=== PATIENT | female | born 1955 | race Two or more races ===

== ENCOUNTER 2017-05-20 20:04 | Emergency (ER) | payer MEDICAID ==
[~2017-05-20] VITALS: Ht 149.9 cm; Wt 79.6 kg
[2017-05-20 20:29] VITALS: BP 154/65
[2017-05-20 21:21] LABS: Basophils # (auto) 0 uL; Basophils % (auto) 0.4 % (0.0-2.0); Eosinophils # (auto) 0.1 uL; Eosinophils % (auto) 0.9 % (0.0-7.0); Hematocrit 45.1 % (36.0-46.0); Hemoglobin 15.2 g/dL (12.2-16.2); Lymphocytes # (auto) 2.4 uL; Lymphocytes % (auto) 25.1 % (10.0-50.0); Mean Corpuscular Hgb Conc. 33.8 g/dL (32.0-36.0); Mean Corpuscular Volume 85.9 fL (80.0-100.0); Monocytes # (auto) 0.7 uL; Monocytes % (auto) 6.9 % (0.0-12.0); Neutrophils # (auto) 6.4 uL; Neutrophils % (auto) 66.7 % (37.0-80.0); Nucleated Red Blood Cells % 0.1 %; Platelet Count (auto) 269 10^3/uL (140-450); Red Blood Cells 5.25 10^6/uL (4.0-5.20); Red Cell Distribution Width 13.5 % (11.8-14.3); White Blood Cell 9.5 10^3/uL (4.4-10.8)
[2017-05-20 21:31] LABS: INR 0.98 (0.9-1.15); Prothrombin Time 10.7 sec (9.37-12.3)
[2017-05-20 21:44] LABS: Albumin 3.9 g/dL (3.4-5.0); BUN/Creatinine Ratio 18.5; Bilirubin, Total 0.6 mg/dL (0.2-1.0); Potassium 3.7 mmol/L (3.5-5.1); Total Protein 8.6 g/dL (6.4-8.2)
== END 2017-05-20 23:05 | disposition left against medical advice (07) ==
LOC: ER 20:04
DX: R07.9 Chest pain, unspecified (principal); Z53.21 Procedure and treatment not carried out due to patient leaving prior to being seen by health care provider; V43.52XA Car driver injured in collision with other type car in traffic accident, initial encounter; Y93.89 Activity, other specified; Y92.89 Other specified places as the place of occurrence of the external cause; Y99.8 Other external cause status
CPT/HCPCS: 36415; 71046; 80053; 85025; 85610; 85730; 93005

== ENCOUNTER 2018-02-25 01:48 | Emergency (ER) | payer MEDICAID ==
[~2018-02-25] VITALS: Ht 134.6 cm; Wt 77.1 kg
[2018-02-25 02:14] LABS: Basophils # (auto) 0 uL; Basophils % (auto) 0.4 % (0.0-2.0); Eosinophils # (auto) 0.1 uL; Eosinophils % (auto) 1.5 % (0.0-7.0); Hematocrit 43.1 % (36.0-46.0); Hemoglobin 14.8 g/dL (12.2-16.2); Lymphocytes # (auto) 2.6 uL; Lymphocytes % (auto) 27.9 % (10.0-50.0); Mean Corpuscular Hemoglobin 29.5 pg (28.0-32.0); Mean Corpuscular Hgb Conc. 34.3 g/dL (32.0-36.0); Mean Corpuscular Volume 85.9 fL (80.0-100.0); Monocytes # (auto) 0.6 uL; Monocytes % (auto) 6.3 % (0.0-12.0); Neutrophils % (auto) 63.9 % (37.0-80.0); Nucleated Red Blood Cells % 0.1 %; Platelet Count (auto) 265 10^3/uL (140-450); Red Blood Cells 5.02 10^6/uL (4.0-5.20); Red Cell Distribution Width 12.9 % (11.8-14.3); White Blood Cell 9.4 10^3/uL (4.4-10.8)
[2018-02-25 02:33] LABS: Albumin 3.5 g/dL (3.4-5.0); Calcium 8.5 mg/dL (8.5-10.1); Potassium 3.9 mmol/L (3.5-5.1)
[2018-02-25 02:35] LABS: BUN/Creatinine Ratio 14.8
[2018-02-25 02:36] LABS: Bilirubin, Total 0.5 mg/dL (0.2-1.0)
[2018-02-25 02:38] LABS: Urine Bacteria NONE SEEN /hpf (None Seen); Urine Blood Negative /uL (Negative); Urine Mucus FEW (None Seen); Urine Specific Gravity 1.009 (1.001-1.035); Urine WBC 2 /hpf (0 - 5)
[2018-02-25 04:03] VITALS: BP 149/89
[2018-02-25] MEDS ORDERED: HYDROcodone-ACET 10/325MG TAB PO ONE (04:30)
[2018-02-25] MEDS ORDERED: cefTRIAXone SOD 1,000 MG VL IM ONE (04:30)
== END 2018-02-25 04:55 | disposition home or self-care (01) ==
LOC: ER 01:48
DX: B35.1 Tinea unguium (principal); E11.9 Type 2 diabetes mellitus without complications
CPT/HCPCS: 36415; 73620; 80053; 81001; 85025; 96372; 99285; J0696

== ENCOUNTER 2021-10-16 18:56 | Inpatient (IN) | payer OTHER, MEDICAID ==
[~2021-10-16] VITALS: Ht 154.9 cm; Wt 85.4 kg
[2021-10-16] MEDS ORDERED: SODIUM CHLORIDE 0.9% 1,000 ML IV ONE (20:15)
[2021-10-16] MEDS ORDERED: ACETAMINOPHEN 325 MG TAB PO ONE (22:00)
[2021-10-16] MEDS ORDERED: DexAMETHasone SOD PHOS 10MG/1ML VIAL INJ IV ONE (23:15)
[2021-10-16 23:22] LABS: Basophils # (auto) 0 10 ^3/uL (0-0.2); Basophils % (auto) 0.5 % (0.0-2.0); Eosinophils # (auto) 0 10 ^3/uL (0-0.8); Eosinophils % (auto) 0.2 % (0.0-7.0); Hematocrit 43.1 % (36.0-46.0); Lymphocytes # (auto) 1.6 10 ^3/uL (0.4-5.4); Lymphocytes % (auto) 24.2 % (10.0-50.0); Mean Corpuscular Hemoglobin 29.9 pg (28.0-32.0); Mean Corpuscular Hgb Conc. 34.9 g/dL (32.0-36.0); Mean Corpuscular Volume 85.6 fL (80.0-100.0); Monocytes # (auto) 0.8 10 ^3/uL (0-1.3); Monocytes % (auto) 11.6 % (0.0-12.0); Neutrophils # (auto) 4.3 10 ^3/uL (1.6-8.6); Neutrophils % (auto) 63.5 % (37.0-80.0); Nucleated Red Blood Cells % 0.1 %; Red Blood Cells 5.04 10^6/uL (4.0-5.20); Red Cell Distribution Width 13.4 % (11.8-14.3); White Blood Cell 6.8 10^3/uL (4.4-10.8)
[2021-10-16 23:42] LABS: Potassium 4.2 mmol/L (3.5-5.1)
[2021-10-16 23:47] LABS: Albumin 3.4 g/dL (3.4-5.0); BUN/Creatinine Ratio 13.8
[2021-10-16 23:49] LABS: Bilirubin, Total 0.9 mg/dL (0.2-1.0)
[2021-10-16] MEDS ORDERED: IOHEXOL 350 MG/ML 100ML IJ ONE (23:55)
[2021-10-17] MEDS ORDERED: AZITHROMYCIN 500MG/ 250ML 250 ML IV ONE
[2021-10-17] MEDS ORDERED: cefTRIAXone 1GM/50ML D5W 50 ML IV ONE
[2021-10-17] MEDS ORDERED: ACETAMINOPHEN 325 MG TAB PO PRN (05:45)
[2021-10-17] MEDS ORDERED: TEMAZEPAM 15 MG CAP PO PRN (05:45)
[2021-10-17] MEDS ORDERED: NITROGLYCERIN 0.4 MG SL TAB SL PRN (05:45)
[2021-10-17] MEDS ORDERED: ALBUTEROL SULF 2.5 MG/0.5ML(0.5%) NEB SOLN NEB PRN (05:45)
[2021-10-17] MEDS ORDERED: MORPHINE SULFATE INJ 2 MG/ml SYRG IV PRN (05:45)
[2021-10-17] MEDS ORDERED: ONDANSETRON HCL 4 MG/2 ML VIAL IV PRN (05:45)
[2021-10-17] MEDS: LEVOTHYROXINE SODIUM 50 MCG TAB PO SCH (07:15)
[2021-10-17 09:22] VITALS: BP 108/57
[2021-10-17] MEDS ORDERED: PANTOPRAZOLE 40 MG TAB PO SCH (10:00)
[2021-10-17 13:00] VITALS: BP 115/61
[2021-10-17] MEDS: ENOXAPARIN SOD 40 MG/0.4 ML SYRINGE SC SCH (14:13)
[2021-10-17] MEDS: ENALAPRIL MALEATE 10 MG TAB PO SCH (14:13)
[2021-10-17] MEDS ORDERED: DEXTROSE (50%) 50ML SYRG IV PRN (16:15)
[2021-10-17 17:00] VITALS: BP 107/55
[2021-10-17] MEDS: ACCU-CHEK COMFORT CURVE STRIP VI SCH ×2 (17:20→22:22)
[2021-10-17] MEDS: InsuLIN REG 1unit/0.01ml Soln (100units/ml) SC SCH ×2 (17:21→22:23)
[2021-10-17 22:00] VITALS: BP 107/47
[2021-10-17] MEDS ORDERED: AZITHROMYCIN 500MG/ 250ML 250 ML IV SCH (22:00)
[2021-10-17] MEDS: FLUTICASONE PROP NASAL SPR 0.05 % (50MCG) 16GM EACHNOSTRI SCH (22:00)
[2021-10-18 05:00] VITALS: BP 113/53
[2021-10-18 05:44] LABS: Cholesterol 152 mg/dL (< 200)
[2021-10-18 05:46] LABS: HDL Cholesterol 36 mg/dL (40-59); LDL Cholesterol 100 mg/dL (< 100); Triglycerides 175 mg/dL (< 150)
[2021-10-18 05:47] LABS: Albumin 2.8 g/dL (3.4-5.0); BUN/Creatinine Ratio 22.2; Calcium 8.3 mg/dL (8.5-10.1)
[2021-10-18 05:50] LABS: Bilirubin, Total 0.6 mg/dL (0.2-1.0); Total Protein 6.7 g/dL (6.4-8.2)
[2021-10-18 06:03] LABS: Basophils # (auto) 0 10 ^3/uL (0-0.2); Basophils % (auto) 0.5 % (0.0-2.0); Eosinophils # (auto) 0.1 10 ^3/uL (0-0.8); Eosinophils % (auto) 0.9 % (0.0-7.0); Hematocrit 39.3 % (36.0-46.0); Hemoglobin 13.3 g/dL (12.2-16.2); Lymphocytes # (auto) 1.8 10 ^3/uL (0.4-5.4); Lymphocytes % (auto) 30.9 % (10.0-50.0); Mean Corpuscular Hgb Conc. 33.7 g/dL (32.0-36.0); Mean Corpuscular Volume 86.1 fL (80.0-100.0); Monocytes # (auto) 0.7 10 ^3/uL (0-1.3); Monocytes % (auto) 12.4 % (0.0-12.0); Neutrophils # (auto) 3.2 10 ^3/uL (1.6-8.6); Neutrophils % (auto) 55.3 % (37.0-80.0); Nucleated Red Blood Cells % 0.1 %; Red Blood Cells 4.57 10^6/uL (4.0-5.20); Red Cell Distribution Width 13.8 % (11.8-14.3); White Blood Cell 5.7 10^3/uL (4.4-10.8)
[2021-10-18] MEDS: LEVOTHYROXINE SODIUM 50 MCG TAB PO SCH (06:35)
[2021-10-18] MEDS: ACCU-CHEK COMFORT CURVE STRIP VI SCH ×2 (06:36→12:01)
[2021-10-18] MEDS: InsuLIN REG 1unit/0.01ml Soln (100units/ml) SC SCH ×2 (06:36→12:04)
[2021-10-18 08:31] VITALS: BP 120/49
[2021-10-18] MEDS: ENOXAPARIN SOD 40 MG/0.4 ML SYRINGE SC SCH (09:35)
[2021-10-18] MEDS: FLUTICASONE PROP NASAL SPR 0.05 % (50MCG) 16GM EACHNOSTRI SCH (09:35)
[2021-10-18] MEDS: ENALAPRIL MALEATE 10 MG TAB PO SCH (09:35)
[2021-10-18] MEDS ORDERED: LEV50T PO (12:08)
[2021-10-18] MEDS ORDERED: ENAL10TA13 PO (12:08)
[2021-10-18] MEDS ORDERED: FLUT50SP EACHNOSTRI (12:08)
[2021-10-18] MEDS ORDERED: AMOX500T86 PO (12:08)
[2021-10-18 12:47] VITALS: BP 120/49
[2021-10-18 13:00] VITALS: BP 131/68
== END 2021-10-18 14:25 | disposition home or self-care (01) | DRG 189 ==
LOC: ER 18:56 → TELE 10-17 05:41 → TELE-WESTW 10-17 10:53
PROVIDERS: ADMIT Nurse Practitioner; ATTEND Hospitalist
DX: J96.01 Acute respiratory failure with hypoxia (principal); J20.9 Acute bronchitis, unspecified; B34.9 Viral infection, unspecified; E11.9 Type 2 diabetes mellitus without complications; E66.9 Obesity, unspecified; I11.9 Hypertensive heart disease without heart failure; M19.90 Unspecified osteoarthritis, unspecified site; Z20.822 Contact with and (suspected) exposure to COVID-19; R59.9 Enlarged lymph nodes, unspecified; Z79.84 Long term (current) use of oral hypoglycemic drugs
CPT/HCPCS: 36415; 70486; 71045; 80053; 80061; 82728; 82962; 83036; 83605; 83880; 84484; 85025; 85379; 87040; 96365; 96368; 96375; G0378; J0696; J1100; J1815